=== PATIENT | female | born 1990 | race Caucasian/White ===

== ENCOUNTER 2016-09-06 17:03 | Emergency (ER) | payer MEDICAID | END 2016-09-06 20:00 | disposition home or self-care (01) | LOC: D.ER 17:03 | DX: J02.9 Acute pharyngitis, unspecified (principal); K13.70 Unspecified lesions of oral mucosa ==

== ENCOUNTER 2016-10-07 14:07 | Emergency (ER) | payer MEDICAID | END 2016-10-07 15:05 | disposition home or self-care (01) | LOC: D.ER 14:07 | DX: R09.1 Pleurisy (principal); R07.89 Other chest pain ==

== ENCOUNTER → 2016-11-30 12:03 | Outpatient (CLI) | payer MEDICAID ==
[2016-11-30 13:53] LABS: APPEARANCE HAZY (CLEAR); BILIRUBIN NEGATIVE (NEGATIVE); COLOR YELLOW (YELLOW); GLUCOSE NEGATIVE (NEGATIVE); KETONE NEGATIVE (NEGATIVE); LEUKOCYTE ESTERASE 1+ (NEGATIVE); NITRITE NEGATIVE (NEGATIVE); PROTEIN NEGATIVE (NEGATIVE); UROBILINOGEN NORMAL (NORMAL)
[2016-11-30 13:55] LABS: BACTERIA MODERATE /hpf (NONE SEEN); CALCIUM OXALATE CRYSTALS 0-5 /hpf (NONE SEEN); MUCUS >1+ /lpf (NONE SEEN); RED CELLS - URINE 0-5 /hpf (0-5)
== END | disposition home or self-care (01) ==
LOC: D.LDO 12:03
PROVIDERS: Obstetrics & Gynecology
DX: O36.8130 Decreased fetal movements, third trimester, not applicable or unspecified (principal); Z3A.34 34 weeks gestation of pregnancy

== ENCOUNTER → 2016-12-05 21:56 | Outpatient (CLI) | payer MEDICAID ==
[2016-12-05 22:22] LABS: APPEARANCE CLEAR (CLEAR); BILIRUBIN NEGATIVE (NEGATIVE); COLOR YELLOW (YELLOW); GLUCOSE NEGATIVE (NEGATIVE); KETONE NEGATIVE (NEGATIVE); LEUKOCYTE ESTERASE TRACE (NEGATIVE); NITRITE NEGATIVE (NEGATIVE); PROTEIN NEGATIVE (NEGATIVE); UROBILINOGEN NORMAL (NORMAL)
[2016-12-05 22:23] LABS: RED CELLS - URINE 0-5 /hpf (0-5)
[2016-12-05 22:25] LABS: BACTERIA MANY /hpf (NONE SEEN)
== END | disposition home or self-care (01) ==
LOC: D.LDO 21:56
PROVIDERS: Obstetrics & Gynecology
DX: Z34.03 Encounter for supervision of normal first pregnancy, third trimester (principal); Z3A.35 35 weeks gestation of pregnancy; M54.9 Dorsalgia, unspecified

== ENCOUNTER → 2016-12-21 15:01 | Outpatient (CLI) | payer MEDICAID ==
[2016-12-22 18:56] LABS: PROTEIN - URINE 17.6 mg/dL (0.0-11.9)
== END | disposition home or self-care (01) ==
LOC: D.LDO 15:01
PROVIDERS: Obstetrics & Gynecology
DX: O10.913 Unspecified pre-existing hypertension complicating pregnancy, third trimester (principal); Z3A.36 36 weeks gestation of pregnancy

== ENCOUNTER → 2016-12-25 12:25 | Outpatient (CLI) | payer MEDICAID ==
[2016-12-25 13:51] LABS: APPEARANCE CLOUDY (CLEAR); BILIRUBIN NEGATIVE (NEGATIVE); COLOR YELLOW (YELLOW); GLUCOSE NEGATIVE (NEGATIVE); KETONE NEGATIVE (NEGATIVE); LEUKOCYTE ESTERASE 1+ (NEGATIVE); NITRITE NEGATIVE (NEGATIVE); PROTEIN NEGATIVE (NEGATIVE); SPECIFIC GRAVITY 1.015 (1.005-1.020)
[2016-12-25 13:52] LABS: AMORPHOUS SEDIMENT <1+ /lpf (NONE SEEN); BACTERIA MANY /hpf (NONE SEEN); EPITHELIAL CELLS 0-5 /hpf (0-5); MUCUS <1+ /lpf (NONE SEEN); WHITE CELLS - URINE 0-5 /hpf (0-5)
== END | disposition home or self-care (01) ==
LOC: D.LDO 12:25
PROVIDERS: Obstetrics & Gynecology
DX: Z34.93 Encounter for supervision of normal pregnancy, unspecified, third trimester (principal); Z3A.38 38 weeks gestation of pregnancy; R03.0 Elevated blood-pressure reading, without diagnosis of hypertension

== ENCOUNTER → 2017-01-03 12:10 | Outpatient (CLI) | payer MEDICAID ==
[2017-01-03 13:51] LABS: BASOPHILS 0.2 % (0-2); EOSINOPHILS 0.7 % (0-7); HEMATOCRIT 36.4 % (36.0-48.0); HEMOGLOBIN 11.5 g/dL (12-16); IMMATURE GRANULOCYTES 0.3 % (0-5); LYMPHOCYTES 26.5 % (15-50); MCH 27.9 pg (26.0-34.0); MCHC 31.6 g/dL (31.0-37.0); MCV 88.3 fL (80.0-100.0); MEAN PLATELET VOLUME 10.6 fL (7.4-10.4); MONOCYTES 6.2 % (2-11); NEUTROPHILS 66.1 % (40-80); PLATELET COUNT 289 10x3/uL (130-400); RBC 4.12 10x6/uL (4.00-5.40); WBC 14.1 10x3/uL (4.8-10.8)
[2017-01-03 14:12] LABS: CALC OSMOLALITY 275 mosm/kg (275-300); CALCIUM 8.4 mg/dL (8.5-10.1); CARBON DIOXIDE 25.8 mmol/L (21.0-32.0); CHLORIDE - SERUM 104 mmol/L (98-107); CREATININE - SERUM 0.6 mg/dL (0.6-1.3); GLUCOSE 76 mg/dL (74-106); POTASSIUM - SERUM 3.7 mmol/L (3.5-5.1); SODIUM 139 mmol/L (136-145); UREA NITROGEN 9 mg/dL (7-18); URIC ACID 5.1 mg/dL (2.6-7.2); eGFR NON AFRICAN AMERICAN > 90 mL/min (90-120)
== END | disposition home or self-care (01) ==
LOC: D.LDO 12:10
PROVIDERS: Obstetrics & Gynecology
DX: Z34.93 Encounter for supervision of normal pregnancy, unspecified, third trimester (principal); Z3A.39 39 weeks gestation of pregnancy; R03.0 Elevated blood-pressure reading, without diagnosis of hypertension

== ENCOUNTER → 2017-01-07 11:20 | Outpatient (CLI) | payer MEDICAID ==
[2017-01-07 12:17] LABS: BASOPHILS 0.2 % (0-2); EOSINOPHILS 0.8 % (0-7); HEMATOCRIT 37.2 % (36.0-48.0); HEMOGLOBIN 11.8 g/dL (12-16); IMMATURE GRANULOCYTES 0.4 % (0-5); LYMPHOCYTES 24.4 % (15-50); MCHC 31.7 g/dL (31.0-37.0); MCV 88.2 fL (80.0-100.0); MEAN PLATELET VOLUME 10.7 fL (7.4-10.4); MONOCYTES 6.4 % (2-11); NEUTROPHILS 67.8 % (40-80); PLATELET COUNT 310 10x3/uL (130-400); RBC 4.22 10x6/uL (4.00-5.40); RDW 15.2 % (11.5-14.5); WBC 13.6 10x3/uL (4.8-10.8)
[2017-01-07 12:37] LABS: ALBUMIN 2.3 g/dL (3.4-5.0); ALKALINE PHOSPHATASE 156 U/L (46-116); ALT (SGPT) 17 U/L (10-68); BILIRUBIN - DIRECT 0.04 mg/dL (0.00-0.30); BILIRUBIN - INDIRECT 0.16 mg/dL (0.00-1.00); CALC OSMOLALITY 271 mosm/kg (275-300); CALCIUM 8.8 mg/dL (8.5-10.1); CARBON DIOXIDE 27.1 mmol/L (21.0-32.0); CHLORIDE - SERUM 103 mmol/L (98-107); CREATININE - SERUM 0.6 mg/dL (0.6-1.3); GLUCOSE 76 mg/dL (74-106); PROTEIN - SERUM 6.7 g/dL (6.4-8.2); SODIUM 137 mmol/L (136-145); UREA NITROGEN 10 mg/dL (7-18); URIC ACID 3.7 mg/dL (2.6-7.2); eGFR NON AFRICAN AMERICAN > 90 mL/min (90-120)
== END | disposition home or self-care (01) ==
LOC: D.LDO 11:20
PROVIDERS: Obstetrics & Gynecology
DX: O48.0 Post-term pregnancy (principal); Z3A.40 40 weeks gestation of pregnancy

== ENCOUNTER 2017-01-11 01:34 | Inpatient (IN) | payer MEDICAID ==
[~2017-01-11] VITALS: Ht 167.6 cm; Wt 134.9 kg
[2017-01-11] MEDS ORDERED: PRENATAL COMPLE1 TAB PO (05:29)
[2017-01-11] MEDS ORDERED: PROZAC20 MG PO (05:29)
[2017-01-11 05:30] VITALS: BP 116/55; Ht 167.6 cm; Wt 134.9 kg
[2017-01-11 06:04] LABS: HEMATOCRIT 36.3 % (36.0-48.0); HEMOGLOBIN 11.3 g/dL (12-16); MCH 27.4 pg (26.0-34.0); MCHC 31.1 g/dL (31.0-37.0); MCV 87.9 fL (80.0-100.0); MEAN PLATELET VOLUME 10.8 fL (7.4-10.4); RBC 4.13 10x6/uL (4.00-5.40); WBC 14.1 10x3/uL (4.8-10.8)
[2017-01-11 06:26] LABS: APPEARANCE SLT CLOUDY (CLEAR); BILIRUBIN NEGATIVE (NEGATIVE); COLOR YELLOW (YELLOW); GLUCOSE NEGATIVE (NEGATIVE); KETONE NEGATIVE (NEGATIVE); LEUKOCYTE ESTERASE 2+ (NEGATIVE); NITRITE NEGATIVE (NEGATIVE); PROTEIN NEGATIVE (NEGATIVE); SPECIFIC GRAVITY 1.015 (1.005-1.020); UROBILINOGEN NORMAL (NORMAL)
[2017-01-11 06:29] LABS: BACTERIA MODERATE /hpf (NONE SEEN); MUCUS <1+ /lpf (NONE SEEN); RED CELLS - URINE 0-5 /hpf (0-5); WHITE CELLS - URINE >50 /hpf (0-5); YEAST RARE /hpf (NONE SEEN)
[2017-01-12] VITALS (10 sets, daily range): BP systolic 98–150; BP diastolic 58–86
--- NOTE | 2017-01-12 04:14 | NUR ---
FUNDUS MIDLINE, 6 INCHES ABOVE UMBILLICUS. FIRM. MODERATE LOCHIA
--- NOTE | 2017-01-12 04:23 | NUR ---
PT RECEIVED TO ROOM 1214 VIA RECOVERY ROOM NURSE AND L&D NURSE. PT AWAKE BUT DROWSY AT THIS TIME. VSS. PT RATES PAIN 9/10. PT ORIENTED TO ROOM AND CALL LIGHT AT THIS TIME. IV NOTED TO LEFT WRIST INFUSING NS WITH PITOCIN @ 125 CC/HR. PATENT. DRESSING CDI. HEART RRR. LUNG SOUNDS CLEAR BILATERALLY. BOWEL SOUNDS HYPOACTIVE X4 QUADRENTS. ABDOMEN SOFT WITH TENDERNESS. FUNDUS FIRM AND MIDLINE U/U. LOW TRANSVERSE INCISION NOTED TO ABDOMEN WITH DRESSING. NO DRAINAGE NOTED. MODERATE LOCHIA RUBRA NOTED TO IRIS PAD AT THIS TIME. LIGHT LOCHIA RUBRA NOTED TO BLUE PAD. PLACED CLEAN ISAAC AND IRIS PAD AT THIS TIME. BRENNER ATTACHED TO RIGHT THIGH DRAINING SURY URINE. SCDS INITIATED TO BLE. PEDAL PULSES EQUAL BILATERALLY. DEMEROL DINING ROOM COORDINATOR INITIATED AT THIS TIME. PT VERBALIZES UNDERSTANDING ON USE OF DINING ROOM COORDINATOR BUTTON. REQUESTS ICE CHIPS. DENIES OTHER NEEDS. BED LOW. PHONE AND CALL LIGHT IN REACH. SRX2.
[2017-01-12 05:15] LABS: RAPID PLASMA REAGIN Non Reactive (Non Reactive)
--- NOTE | 2017-01-12 05:45 | NUR ---
LIGHT LOCHIA RUBRA NOTED TO IRIS PAD AT THIS TIME. PLACED NEW IRIS PAD ON PT. REPOSITIONED PT TO RIGHT SIDE. PT REQUESTS SPRITE DENIES OTHER NEEDS. BED LOW. PHONE AND CALL LIGHT IN REACH. SRX2.
--- NOTE | 2017-01-12 06:15 | NUR ---
PT RESTING QUIETLY AT THIS TIME WITH EYES CLOSED. AROUSED EASILY. VSS. EMPTIED 450 CC SURY URINE FROM BRENNER AT THIS TIME. PT DENIES NEEDS. BED LOW. PHONE AND CALL LIGHT IN REACH. SRX2.
--- NOTE | 2017-01-12 07:15 | NUR ---
PT WAS RECEIVED THIS AM LYING IN BED. SHE STATES HER PAIN IS A 5. SHE DOZES OFF WHILE I EXAMINE HER. GEN- AWAKE AND ALERT. LUNGS- CLEAR. HEART- RRR. ABD- SOFT WITH TENDERNESS NOTED. LOW TRANSVERSE INCISION WITH BULKY DRESSING NOTED. BERNNER INTACT WITH SURY COLORED URINE NOTED. BRENNER SECURED TO R THIGH. MOD LOCIA RUBRA. SCD'S INTACT. IV INTACT LEFT WRIST. PATENT. IV NS WITH PIT INFUSING @ 125 CC/ HR. DEMEROL AUTOMATIC STEEL TIE ADJUSTER 10 MG Q 10 MIN INFUSING. BED IS LOW, SIDE RAILS UP X 2. CALL LIGHT IS IN REACH.
--- NOTE | 2017-01-12 08:30 | NUR ---
DR RAMOS, ODD SHOE EXAMINER TO ROOM TO TALK TO PT ABOUT HER BABY. DR RAMOS STATES THAT SHE DISCUSSED WITH HER THE BABY BEING SICK AND WOULD HAVE TO STAY IN THE HOSPITAL FOR 7 DAYS FOR IV ANTIBIOTICS.
--- NOTE | 2017-01-12 09:01 | NUR ---
PT IS RESTING IN BED. DOZING OFF WHILE CHECKING HER VS. STATES SHE IS STILL HAVING PAIN THOUGH.
--- NOTE | 2017-01-12 10:30 | NUR ---
THIS RN AND Rosey CAMPOSRN TO PT'S BEDSIDE. V/S COMPLETED. SEE FLOWSHEET. PT RATES PAIN 5/10. CONTINUES TO PUSH CAPSULE FILLING MACHINE OPERATOR BUTTON. CAPSULE FILLING MACHINE OPERATOR PUMP SOUNDING NEAR END. WILL CHANGE SYRINGE. PT REPOSITIONS SELF IN BED. TURNS SIDE TO SIDE FOR PINK PAD/CHUX/PAD CHANGE. SMALL TO MODERATE LOCHIA NOTED TO OLD PAD. BRENNER CATH REMAINS IN PLACE DRAINING VIA GRAVITY.SCD WRAPS ON BILATERALLY. CONNECTED TO PUMP. PUMP ON AND FUNCTIONING. FRESH ICE WATER AND A FRESH [place] SODA SERVED. FRESH ICE CAP PROVIDED AND PLACED ON PT'S ABD. PT QUESTIONS WHEN SHE MAY GO TO NURSERY TO SEE . PT INFORMED THAT DR RAMOS PLANS TO RETURN TO [facility] NURSERY TO REEVALUATE AND THEN MOM MAY GO TO NURSERY TO SEE . PT VERBALZIES UNDERSTANDING AND IS AGREEABLE. BED LOW,SIDE RAILS UP X 2. CALL LIGHT AND CAPSULE FILLING MACHINE OPERATOR BUTTON AT PT'S SIDE. FRIEND AT BEDSIDE.
--- NOTE | 2017-01-12 12:32 | NUR ---
DR CH HERE TO SEE PT. NEW ORDERS NOTED. I WILL SALINE LOCK HER ABOUT 3-4 AND TAKE HER BRENNER OUT AND HAVE HER AMBULATE.
--- NOTE | 2017-01-12 14:50 | NUR ---
PT IS RESTING IN BED. PT REPOSITIONED TO R SIDE. PILLOW PLACED BEHIND HER BACK.
[2017-01-12 14:52] LABS: HEMATOCRIT 31.8 % (36.0-48.0); MCH 27.9 pg (26.0-34.0); MCHC 31.4 g/dL (31.0-37.0); MCV 88.8 fL (80.0-100.0); MEAN PLATELET VOLUME 10.2 fL (7.4-10.4); RBC 3.58 10x6/uL (4.00-5.40); RDW 15.1 % (11.5-14.5); WBC 25.1 10x3/uL (4.8-10.8)
--- NOTE | 2017-01-12 15:13 | NUR ---
PM LAB REVIEWED. WBC IS 25.0. HGB 10.0 HCT 31.8. PTS TEMP IS 98.4. CALLED AND REPORTED TO DR CH. SHE STATES TO CALL HER IF PTS TEMP EXCEEDS 100 DEGREES.
--- NOTE | 2017-01-12 16:30 | NUR ---
PTS BED PADS WERE CHANGED. STILL WITH MODERATE LOCIA RUBRA.
--- NOTE | 2017-01-12 16:40 | NUR ---
THIS RN TO PT'S ROOM PER REQUEST. PT REQUEST TO REPOSITIONIN BED. PT ABLE TO REPOSITION SELF UP IN BED. PINK PAD/CHUX CHANGED. MODERATE RUBRA LOCHIA NOTED TO PERIPAD. PERICARE DONE. CLEAN PERIPAD PLACED. PT REPOSITIONS SELF TO LEFT LATERAL TILT. ICE CAP REFRESHENED AND PLACED ON PT'S ABD. SMALL PILLOW PROVIDED. FRESH ICE WATER SERVED. GEOPHYSICS SCIENTIST BUTTON PLACED IN PT'S HAND. PT DENIES FURTHER NEEDS AT THIS TIME.
--- NOTE | 2017-01-12 16:45 | NUR ---
DR SMITH TO ROOM TO SPEAK WITH PT IN REGARDS TO POC OF INFANT. ECHO TO BE PERFORMED THEN TO BE TRANSPORTED TO [facility] NICU. PT OFFERED OPPORTUNITY TO ASK MD QUESTIONS. QUESTIONS ANSWERED PER MD. PT SATISFIED. PT AGREEBLE TO BEING TRANSPORTED.
--- NOTE | 2017-01-12 16:45 | NUR ---
DR SMITH TO BEDSIDE TO DISCUSS CONDITION OF BABY AND EXPLAINED THE NEED FOR THE BABY TO BE TRANSFERRED TO [facility].
--- NOTE | 2017-01-12 17:15 | NUR ---
BRENNER WAS REMOVED AND IV WAS SALINE LOCKED. ALCOHOL SWABS PLACED ON PORTS. SALINE PATENT LEFT WRIST. PT WAS INSTRUCTED TO CALL FOR ASSISTANCE TO GET UP TO GO TO BATHROOM THE FIRST COUPLE OF TIMES. ALSO INSTRUCTRED HER WE NEED TO MEASURE HER URINE FOR 3 VOIDS. BED IS LOW, SIDE RAILS UP X 2 AND CALL LIGHT IN REACH.
--- NOTE | 2017-01-12 18:00 | NUR ---
PT UP TO VOID. VOIDED 200CC BLOODY URINE.
--- NOTE | 2017-01-12 18:17 | NUR ---
BABY WAS BROUGHT TO PTS ROOM BEFORE LEAVING FOR [facility]
--- NOTE | 2017-01-12 19:06 | NUR ---
REPORT REC'D FROM Abner FLOOD, JOCELYN. THIS RN RESUMING CARE OF THIS G1 NOW P1 DELIVERED VIA AT 0247 THIS A.M. PT REC'D IN SEMI FOWLERS POSITION LAYING ON BACK. AWAKE, ALERT, AND ORIENTED X3, CONVERSING WITH S/O AT BEDSIDE. STATES THAT PAIN IS 4-5/10, PAIN MEDICATIONS REVIEWED WITH PT, VERBALIZED KNOWING THAT SHE COULD HAVE DEMEROL Q4HPRN FOR PAIN. PT ASSISTED TO BATHROOM, VOIDED 300 MLS, SCANT RUBRA LOCHIA TO PERIPAD. PLAN OF CARE REVEIWED WITH PT AND S/O, VERBALIZED AGREEMENT, DENIES QUESTIONS. PT STATES THAT SHE HOPES TO D/C IN THE MORNING TO GO TO [place] TO BE WITH HER INFANT THAT WAS TRANSFERED TO THE NICU THIS AFTERNOON. BED IN LOW POSITION, WITH UPPER SIDE RAILS RAISED X2. CL AND PHONE WITHIN REACH. PT VERBALIZED USE OF CALL LIGHT IN BATHROOM. ICE WATER GIVEN. DENIES ADDITIONAL NEEDS AT THIS TIME. WILL CONT TO MONITOR AND ASSIST PRN.
--- NOTE | 2017-01-12 20:16 | NUR ---
ROUNDS MADE. SHIFT ASSESSMENT COMPLETED. VSS. FUNDUS FIRM, U2, WITH SCANT AMT RUBRA LOCHIA TO PERIPAD, NO CLOTS. BULKY DRSG TO INCISION CLEAN, DRY, AND INTACT WITH NO DRAINAGE. PIV TO LEFT WRIST WITH REDNESS, C/O TENDERNESS, UNABLE TO FLUSH. PIV REMOVED, PT REFUSES RESITE AT THIS TIME STATING THAT IF SHE NEEDS ONE LATER IT CAN BE REPLACED. BOWEL SOUNDS PRESENT AND ACTIVE X4 QUADRANTS. DENIES NEEDS AT THIS TIME. INCENTIVE SPIROMETER USED WITH RN AT BEDSIDE. PT DEEP BREATHING AND COUGHING WITH GOOD EFFORT.
--- NOTE | 2017-01-12 20:32 | NUR ---
CALLED TO ROOM VIA CL. PT REQUESTS TO SHOWER. PT UP TO SHOWER WITH RN ASSISTANCE. DAISY REYES LINE INCISION REMOVED, STERI-STRIPS INTACT, NO S/S OF INFECTION NOTED. PT INSTRUCTED ON INCISIONAL CARE, DEMONSTRATED UNDERSTANDING. LINENS CHANGED WHILE PT SHOWERING. PT INDEPENDENT WITH SHOWER EXPECT FOR MINIMAL ASSISTANCE NEED WITH BLE AND BACK, RN PROVIDED ASSISTANCE PRN.
--- NOTE | 2017-01-12 20:57 | NUR ---
SHOWER COMPLETE. RN ASSISTED WITH PATTING INCISION DRY AND DRYING UNDER ABD FOLDS. ABD BINDER APPLIED, PILLOW CASE PLACED BETWEEN ABD FOLDS AND PT PROVIDED WITH INSTRUCTION ON USING PILLOWCASE, WASH CLOTH, PERIPAD, ETC BETWEEN ABD FOLDS TO KEEP INCISION DRY, VERBALIZED UNDERSTANDING. REPORTS THAT PAIN IS 4-5/10 AT THIS TIME. CLEAN GOWN PROVIDED, PT AMBULATING AROUND UNIT WITH S/O AT THIS TIME.
--- NOTE | 2017-01-12 21:03 | NUR ---
PT BACK TO ROOM. PILLOW CASE PLACED BETWEEN ABD FOLD. PT STATES THAT SHE STILL WISHES TO BREAST FEED. PT PROVIDED WITH BREAST PUMP. RN INSTRUCTED ON BREAST PUMP USE AND THAT FOLLOWING D/C, BREAST PUMP REMAINED AT THE HOSPITAL THAT SHE COULD NOT TAKE IT WITH HER, VERBALIZED UNDERSTANDING. INSTRUCTED TO PUMP EACH SIDE 10-20 MINUTES Q 2-3 HOURS, VERBALIZED UNDERSTANDING. BED IN LOW POSITION WITH UPPER SIDE RAILS RAISED X2. CL AND PHONE WITHIN REACH. WILL CONT TO MONITOR AND ASSIST PRN.
--- NOTE | 2017-01-12 21:51 | NUR ---
PAIN 7/10. INCISIONAL BURNING AND ABD CRAMPING. REQUESTS DEMEROL, GIVEN PER REQUEST. PT EDUCATED ON POSSIBLE SIDE EFFECTS, VERBALIZED UNDERSTANDING. DENIES QUESTIONS. BED REMAINS IN LOW POSITION WITH UPPER SIDE RAILS RAISED X2. CL AND PHONE WITHIN REACH. S/O REMAINS AT BEDSIDE. PILLOW AND BLANKET PROVIDED TO S/O. PT REPORTS THAT SHE COMPLETED PUMPING AT 2150 AND WANT TO PUMP AGAIN AT 0000.
--- NOTE | 2017-01-12 22:30 | NUR ---
PAIN REASSESSMENT COMPLETED. PAIN 10/12. RESTING QUIETLY IN ROOM. BED REMAINS IN LOW POSITION WITH UPPER SIDE RAILS X2. CL AND PHONE WITHIN PT REACH. S/O REMAINS AT BEDSIDE.
--- NOTE | 2017-01-12 23:04 | NUR ---
PT AMBULATING IN RIZVI. REPORTS TO RN THAT SHE GOT OUT OF BED INDEPENDENTLY AND VOIDED WITHOUT DIFFICULTY. DENIES NEEDS AT THIS TIME. WILL CONTINUE TO MONITOR.
--- NOTE | 2017-01-12 23:15 | NUR ---
REPORT GIVEN JOCELYN HERNDON. Ivan ENCARNACION RN RESUMING CARE OF PT.
--- NOTE | 2017-01-12 23:51 | NUR ---
PT RESTING QUIETLY AT THIS TIME AAOX3. VSS. PT REQUESTS ICE WATER, DENIES OTHER NEEDS. BED LOW. PHONE AND CALL LIGHT IN REACH. SRX2.
--- NOTE | 2017-01-13 01:40 | NUR ---
ADMINISTERED DEMEROL PO PER ORDERS AT THIS TIME FOR PAIN PT RATES 11/12. DENIES OTHER NEEDS. BED LOW. PHONE AND CALL LIGHT IN REACH. SRX2.
--- NOTE | 2017-01-13 02:52 | NUR ---
PT UP TO USE RESTROOM AT THIS TIME. RATES PAIN 11/12. PT REQUESTS ICE WATER. DENIES OTHER NEEDS. BED LOW. PHONE AND CALL LIGHT IN REACH. SRX2.
--- NOTE | 2017-01-13 04:49 | NUR ---
PT AWAKE LYING IN BED. VSS. PT DENIES NEEDS. BED LOW. PHONE AND CALL LIGHT IN REACH. SRX2.
[2017-01-13 04:50] VITALS: BP 122/81
--- NOTE | 2017-01-13 05:42 | NUR ---
PT REQUESTS MEDICATION FOR PAIN PT RATES 11/12. ADMINISTERED DEMEROL PO PER ORDERS AT THIS TIME. PT UP TO USE RESTROOM. DENIES OTHER NEEDS. BED LOW. PHONE AND CALL LIGHT IN REACH. SRX2.
[2017-01-13 05:49] LABS: HEMATOCRIT 28.3 % (36.0-48.0); MCH 27.9 pg (26.0-34.0); MCHC 31.8 g/dL (31.0-37.0); MCV 87.6 fL (80.0-100.0); MEAN PLATELET VOLUME 10.5 fL (7.4-10.4); RBC 3.23 10x6/uL (4.00-5.40); RDW 15.3 % (11.5-14.5); WBC 24.9 10x3/uL (4.8-10.8)
[2017-01-13 07:45] VITALS: BP 122/76
--- NOTE | 2017-01-13 07:48 | NUR ---
PT is resting with eyes closed and resp even, no distress noted. left undisturbed at this time. Side rails up x 2 with call light within her reach.
--- NOTE | 2017-01-13 08:00 | NUR ---
PT IS RECEIVED LYING IN BED. SHE OFFERS NO COMPLAINTS THIS AM. HER BABY IS IN [place] AT [facility]. PT IS HOPING TO BE DISCHARGED SOON SO SHE CAN GO TO [place] TO SEE HER BABY. HER PAIN LEVEL IS A 2. SHE HAS BEEN VOIDING WITHOUT DIFFICULTY. GEN- AWAKE AND ALERT. LUNGS- CLEAR. HEART- RRR. ABD- SOFT, WITH TENDERNESS BS+. SMALL LOCIA RUBRA. SALINE LOCK PATENT LEFT WRIST. BED IS LOW, SIDE RAILS UP X 2 AND CALL LIGHT IN REACH.
--- NOTE | 2017-01-13 09:06 | NUR ---
PT IS RESTING IN BED. NO COMPLAINTS.
--- NOTE | 2017-01-13 10:00 | NUR ---
PT REQUEST PAIN MED. DEMEROL 100 MG GIVEN PO. ALSO GAVE HER HER MMR IN LEFT DELTOID.
--- NOTE | 2017-01-13 10:17 | NUR ---
PT IS AMBULATING IN HALLWAY.
[2017-01-13] MEDS ORDERED: MEPERIDINE HCL50 MG PO (10:27)
[2017-01-13] MEDS ORDERED: IBUPROFEN600 MG PO (10:28)
--- NOTE | 2017-01-13 11:04 | OP ---
PATIENT NAME: WILBERT CHE MEDICAL RECORD: [id number] :91 LOCATION:[facility] ADMISSION DATE:01/11/17 SURGEON: FELICIANO CH MD DATE OF OPERATION: 01/12/2017 PREOPERATIVE DIAGNOSIS: Cephalopelvic disproportion. POSTOPERATIVE DIAGNOSIS: Cephalopelvic disproportion. PROCEDURE: Primary low transverse section. ANESTHESIA: Epidural. FINDINGS: A 7 pound 15 ounce male infant in cephalic presentation with 7 and 8 Apgars, clear fluid. ESTIMATED BLOOD LOSS: 1000 cc. COMPLICATIONS OF SURGERY: None. OPERATIVE NOTE: The patient was taken to the OR and under adequate epidural anesthesia, prepped and draped in the usual manner for abdominal procedures. A transverse incision was made in the lower abdomen and extended through subcutaneous tissue, fascia, dividing muscles in the midline in the Pfannenstiel manner. Peritoneum was then elevated and incised and this incision extended from the symphysis pubis superiorly approximately 12 cm, avoiding the bladder and abdominal organs. A transverse incision was then made in the lower uterine segment and was delivered through the uteroabdominal incision with the aid of vaginal elevation of the head. The was thoroughly suctioned, cord doubly clamped and ligated and the handed to waiting nursery personnel. Placenta was removed manually. The uterus was closed in two layers of running interlocking #1 chromic suture and a running #1 chromic suture. Pelvis and abdomen were copiously irrigated and suctioned and hemostasis was confirmed. Wilder was applied to the lower uterine segment incision. The fascial layer was closed in a running noninterlocking #1 PDS loop suture. The fascial layer closed as described above. The subcutaneous tissues were then reapproximated in 2 layers, first layer a running noninterlocking 2-0 plain gut. Skin incision reapproximated with a subcuticular 2-0 plain gut suture. Dermabond was applied, a Steri-Strip dressing was applied, pressure dressing was applied and the patient went to the recovery area in good condition. TRANSINT:[id number] Voice Confirmation ID: [id number] DOCUMENT ID: [id number] FELICIANO CH MD at 1104 CC: [id number] DICTATION DATE: 01/12/17 0355 CEO: 01/12/17 1120 ADM IN [facility] [address] [id number]
--- NOTE | 2017-01-13 11:57 | NUR ---
PTS DISCHARGE INSTRUCTIONS GIVEN AND PRESCRIPTIONS AND FU APPT. SHE WAS TAKEN BY WHEELCHAIR TO HER CAR
== END 2017-01-13 11:58 | disposition home or self-care (01) | DRG 765 ==
LOC: D.LD 01:34 → D.WS 04:48 → D.LD 04:48 → D.WS 01-12 04:22
PROVIDERS: ADMIT Obstetrics & Gynecology
PROC: 10D00Z1 Extraction of Products of Conception, Low, Open Approach (ICD-10-PCS; principal; 2017-01-12 02:30)
DX: O33.9 Maternal care for disproportion, unspecified (principal); Z68.42 Body mass index [BMI] 45.0-49.9, adult; O48.0 Post-term pregnancy; O99.214 Obesity complicating childbirth; E66.01 Morbid (severe) obesity due to excess calories; Z3A.40 40 weeks gestation of pregnancy; Z37.0 Single live birth